=== PATIENT | male | born 1995 | race African-American/Black ===

== ENCOUNTER 2019-07-08 18:03 | Emergency (ER) | payer SELFPAY ==
[~2019-07-08] VITALS: Ht 182.9 cm; Wt 104.3 kg
[2019-07-08 18:25] VITALS: BP 134/78
== END 2019-07-08 21:18 | disposition home or self-care (01) ==
LOC: ER 18:03
DX: M62.838 Other muscle spasm (principal); M79.605 Pain in left leg; V89.2XXA Person injured in unspecified motor-vehicle accident, traffic, initial encounter; Y93.I9 Activity, other involving external motion; Y92.410 Unspecified street and highway as the place of occurrence of the external cause; Y99.8 Other external cause status